=== PATIENT | male | born 1950 | race Caucasian/White ===

== ENCOUNTER 2019-08-02 11:50 | Emergency (ER) | payer OTHER ==
--- NOTE | 2019-08-02 12:11 | ED ---
Neurological HPI - HPI Summary HPI Summary: 68 year old M presenting to [facility] accompanied by his daughter with a chief complaint of an episode of trouble expressing certain words and remembering words which occurred two days ago and started at 12:30 and resolved after 15: 00. The patients daughter denies the patient having any similar episodes since two days ago. Per his daughter the patient had chest discomfort 2 weeks ago and had elbow pain several months ago for which he self-medicated. Symptoms aggravated by nothing. Symptoms alleviated by nothing. The patient was in [place] prior to today and flew to [place] on a private plane today. Medication list reviewed. Allergy list reviewed. - History of Current Complaint Chief Complaint: EDNeurologicalDeficit Stated Complaint: STROKE LIKE SYMPTOMS TWO DAYS AGO Time Seen by Provider: 08/02/19 12:04 Hx Obtained From: Patient, Family/Shaker Repairer Onset/Duration: Started days ago, Resolved Pain Intensity: 0 Pain Scale Used: 0-10 Numeric Aggravating: Nothing Alleviating: Nothing - Allergy/Home Medications Allergies/Adverse Reactions: Allergies Allergy/AdvReac Type Severity Reaction Status Date / Time No Known Allergies Allergy Verified 08/02/19 12:04 Home Medications: Home Medications Dexamethasone TAB* [Decadron TAB*] 4 mg PO Q8H #30 tab 08/02/19 [Rx] HYDROcodone/ACETAMIN 5-325 MG* [Gardiner 5-325 TAB*] 1 tab PO Q6H PRN #12 tab MDD 4 08/02/19 [Rx] PMH/Surg Hx/FS Hx/Imm Hx Endocrine/Hematology History: Denies: Hx Diabetes GI History: Reports: Hx Ulcer - Surgical History Surgical History: None Infectious Disease History: No Infectious Disease History: Denies: Traveled Outside the in Last 30 Days - Family History Known Family History: Negative: Diabetes - Social History Alcohol Use: Occasionally Substance Use Type: Reports: None Smoking Status (MU): Current Every Day Smoker Review of Systems Positive: Other - Chest discomfort Positive: Other - Elbow pain Neurological/Mental Status: Other - Difficulty speaking All Other Systems Reviewed And Are Negative: Yes Physical Exam - Summary Physical Exam Summary: VITAL SIGNS: Reviewed. GENERAL: Patient is a well-developed and nourished male who is lying comfortable in the stretcher. Patient is not in any acute respiratory distress. HEAD AND FACE: No signs of trauma. No ecchymosis, hematomas or skull depressions. No sinus tenderness. EYES: PERRL, EOMI x 2, No injected conjunctiva, no nystagmus. EARS: Hearing grossly intact. Ear canals and tympanic membranes are within normal limits. MOUTH: Oropharynx within normal limits. NECK: Supple, trachea is midline, no adenopathy, no JVD, no carotid bruit, no c- spine tenderness, neck with full ROM. CHEST: Symmetric, no tenderness at palpation. LUNGS: Clear to auscultation bilaterally. No wheezing or crackles. CVS: Regular rate and rhythm, S1 and S2 present, no murmurs or gallops appreciated. ABDOMEN: Soft, non-tender. No signs of distention. No rebound, no guarding, and no masses palpated. Bowel sounds are normal. EXTREMITIES: FROM in all major joints, no edema, no cyanosis or clubbing. NEURO: Alert and oriented x 3. No acute neurological deficits. Speech is normal and follows commands, GCS 15, NIH Stroke Scale 0. SKIN: Dry and warm. Triage Information Reviewed: Yes Vital Signs On Initial Exam: Initial Vitals Temp Pulse Resp BP Pulse Ox 98.4 F 75 16 136/78 99 08/02/19 11:50 08/02/19 11:50 08/02/19 11:50 08/02/19 11:50 08/02/19 11:50 Vital Signs Reviewed: Yes - Emelina Coma Scale Best Eye Response: 4 - Spontaneous Best Motor Response: 6 - Obeys Commands Best Verbal Response: 5 - Oriented Coma Scale Total: 15 Procedures - Sedation Patient Received Moderate/Deep Sedation with Procedure: No Diagnostics - Vital Signs Vital Signs Temp Pulse Resp BP Pulse Ox 08/02/19 11:50 98.4 F 75 16 136/78 99 - Laboratory Result Diagrams: 08/02/19 13:43 08/02/19 13:43 Lab Statement: Any lab studies that have been ordered have been reviewed, and results considered in the medical decision making process. - Radiology Chest x-ray Radiology Interpretation Completed By: Radiologist Summary of Radiographic Findings: 4 CM LEFT APICAL LUNG MASS. RECOMMEND FURTHER EVALUATION WITH CONTRAST-ENHANCED CT OF THE CHEST. ED physician has reviewed this report. - CT Brain CT CT Interpretation Completed By: Radiologist Summary of CT Findings: VASOGENIC EDEMA WITHIN THE CEREBRAL HEMISPHERES BILATERALLY. GIVEN THE PRESENCE OF LEFT APICAL MASS ON CHEST RADIOGRAPH, THIS IS MOST CONSISTENT WITH METASTATIC DISEASE TO THE BRAIN. THERE IS MINIMAL SUBFALCINE SHIFT TO THE RIGHT. ED physician has reviewed this report. Brain MRI CT Interpretation Completed By: Radiologist Summary of CT Findings: Vasogenic edema noted in the left temporal lobe and right occipital lobe with. ring enhancing lesions in these areas suspicious for metastatic disease. ED physician has reviewed this report. Chest CT CT Interpretation Completed By: Radiologist Summary of CT Findings: Left apical mass measures 5.0 cm with partial encasement of the left subclavian artery. This appears to extend into the left apex. Small mediastinal lymph nodes which are nonspecific. ED physician has reviewed this report. - EKG 12:24 Cardiac Rate: NL - 67 BPM EKG Rhythm: Sinus Rhythm Summary of EKG Findings: No ST elevations, normal axis. ED physician has reviewed and interpreted this EKG. NIH Scale - NIH Scale Level of Consciousness: Alert/Keenly Responsive Ask Patient the Month and His/Her Age: Both Correct Ask Pt to Open/Close Eyes and Supervisor Maintenance And Custodians/Release Non-Paretic Hand: Both Correctly Best Gaze (Only Horizontal Eye Movement): Normal Visual Field Testing: No Visual Loss Facial Paresis-Pt to Smile & Close Eyes or Grimace Symmetry: Normal/Symmetrical Motor Function - Right Arm: No Drift-Holds 10 Seconds Motor Function - Left Arm: No Drift-Holds 10 Seconds Motor Function - Right Leg: No Drift-Holds 10 Seconds Motor Function - Left Leg: No Drift-Holds 10 Seconds Limb Ataxia-Must be out of Proportion to Weakness Present: Absent Sensory (Use Pinprick to Test Arms/Legs/Trunk/Face): Normal Best Language (Describe Picture, Name Items): No Aphasia Dysarthria (Read Several Words): Normal Extinction and Inattention: No Abnormality Total Score: 0 Re-Evaluation - Re-Evaluation First Eval Re-Evaluation Time: 13:56 Comment: Discussed with the transfer center. Second Eval Re-Evaluation Time: 14:35 Comment: Spoke with Dr. Hollingsworth who recommends to give the patient Decadron 4 mg and discharge him. He will see the patient as an outpatient. Course/Dx - Course Assessment/Plan: 68 year old M presenting to [facility] accompanied by his daughter with a chief complaint of an episode of trouble expressing certain words and remembering words which occurred two days ago and started at 12:30 and resolved after 15:00. The patients daughter denies the patient having any similar episodes since two days ago. Per his daughter the patient had chest discomfort 2 weeks ago and had elbow pain several months ago for which he self-medicated. Symptoms aggravated by nothing. Symptoms alleviated by nothing. The patient was in [place] prior to today and flew to [place] on a private plane today. Medication list reviewed. Allergy list reviewed. Amos curtis was not called since symptoms occurred 2 days ago and lasted for 2 hours. He has had no other episodes since then. In the ED course the patient was placed on a television repairer, IV access was obtained, IV fluids started. Past medical records reviewed. Blood test w/o a significant abnormality except for an Hgb of 13.9, Hct of 41, INR of 1.12, BUN/creatinine ratio of 24.7, and AST of 11. CXR IMPRESSION: 4 CM LEFT APICAL LUNG MASS. RECOMMEND FURTHER EVALUATION WITH CONTRAST-ENHANCED CT OF THE CHEST. Head CT IMPRESSION: VASOGENIC EDEMA WITHIN THE CEREBRAL HEMISPHERES BILATERALLY. GIVEN THE PRESENCE OF LEFT APICAL MASS ON CHEST RADIOGRAPH, THIS IS MOST CONSISTENT WITH METASTATIC DISEASE TO THE BRAIN. THERE IS MINIMAL SUBFALCINE SHIFT TO THE RIGHT. I discussed the case with Dr. Hollingsworth oncologist from [facility] and recommends decadron 4 mg Q8H, for the patient to be discharged home on, he will see the patient in his office on Wednesday. The patients daughter really doesnt want to go to [facility] therefore, I discussed my physical exam and findings with Dr. Springer from oncology and she recommends for the patient to get an MRI of the brain with and without contrast and a chest CT with IV contrast. Brain MRI IMPRESSION : Vasogenic edema noted in the left temporal lobe and right occipital lobe with ring enhancing lesions in these areas suspicious for metastatic disease. Chest CT IMPRESSION: Left apical mass measures 5.0 cm with partial encasement of the left subclavian artery. This appears to extend into the left apex. Small mediastinal lymph nodes which are nonspecific. I discussed the findings and test results of the brain MRI and chest CT with Dr. Springer from oncology and she recommends for the patient to be discharged home with Decadron 4 mg every 8 hours and she will contact him to get an appointment on Wednesday. The patient continues to be hemodynamically stable and alert and oriented 3. He does not have any neurological focal deficits. Therefore I discussed the findings and test results with the patient and patients daughter and agreed with the plan. Patient was instructed to return to the emergency room immediately if any of the symptoms return or worsen. Plan of care was discussed with the patient and the patient understands and agrees. All questions were answered at patient satisfaction. Patient understands and agrees. Neurological exam before discharge : Patient is alert and oriented x 3. No acute neurological deficits. Patient's vital signs are stable. Patient is to follow up with PCP in the next 2 3 days. They understand and agree. The plan of care was discussed with the patient and the patient understands and agrees with the plan of care. All questions were answered at patient satisfaction. There were no further complaints or concerns. - Diagnoses Provider Diagnoses: Lung mass, Brain metastases, Vasogenic brain edema - Physician Notifications Discussed Care Of Patient With: Indu Springer Time Discussed With Above Provider: 14:05 Instructed by Provider To: Other - Discussed with Dr. Springer who recommends transferring the patient. [14:44] Discussed with Dr. Springer. [16:39] Discussed with Dr. Springer who agrees with the plan for discharge. - Critical Care Time Critical Care Statement: Critical care time is provided exclusive of any time spent performing procedures. Discharge ED - Sign-Out/Discharge Documenting (check all that apply): Patient Departure - Discharge Plan Condition: Stable Disposition: HOME Prescriptions: Dexamethasone TAB* [Decadron TAB*] 4 mg PO Q8H #30 tab HYDROcodone/ACETAMIN 5-325 MG* [Gardiner 5-325 TAB*] 1 tab PO Q6H PRN #12 tab MDD 4 PRN Reason: Pain - Severe Referrals: [facility] [Outside] Additional Instructions: Follow up with your primary care provider within 3 days for lung mass, vasogenic brain edema, and brain metastases noted today. Return to the ED for any worsening or new symptoms. - Billing Disposition and Condition Condition: STABLE Disposition: Home - Attestation Statements Document Initiated by Scribe: Yes Documenting Scribe: Key Peterson Provider For Whom Scribe is Documenting (Include Credential): Duane Salas MD Scribe Attestation: Key Cisneros scribed for Duane Salas MD on 08/02/19 at 2050. Scribe Documentation Reviewed: Yes Provider Attestation: The documentation as recorded by the scribeKey accurately reflects the service I personally performed and the decisions made by me, Duane Salas MD Status of Scribena Document: Viewed
[2019-08-02 14:08] LABS: ABS Basophils 0.1 10^3/ul (0-0.2); ABS Eosinophils 0.1 10^3/ul (0-0.6); ABS Lymphocytes 1.7 10^3/ul (1.0-4.8); ABS Monocytes 0.8 10^3/ul (0-0.8); ABS Neutrophils 6.2 10^3/ul (1.5-7.7); Eosinophil % 1.1 %; Hematocrit 41 % (42-52); Hemoglobin 13.9 g/dL (14.0-18.0); Lymphocyte % 19.2 %; Mean Corpuscular HGB Conc 34 g/dL (31-36); Mean Corpuscular Hemoglobin 30 pg (27-31); Mean Corpuscular Volume 88 fL (80-94); Mean Platelet Volume 7.9 fL (7.4-10.4); Platelet Count 367 10^3/uL (150-450); Red Cell Distribution Width 14 % (10-15); White Blood Count 8.8 10^3/uL (3.5-10.8)
[2019-08-02 14:20] LABS: Activated Partial Thrombo Time 34.4 seconds (26.0-38.0); INR 1.12 (0.82-1.09)
[2019-08-02 14:35] LABS: Alcohol < 10 mg/dL (<10)
[2019-08-02 14:38] LABS: ALT 10 U/L (7-52); AST 11 U/L (13-39); Albumin 4.1 g/dL (3.2-5.2); Albumin/Globulin Ratio 1.2 (1-3); Alkaline Phosphatase 93 U/L (34-104); Anion Gap 6 mmol/L (2-11); BUN/Creatinine Ratio 24.7 (8-20); Blood Urea Nitrogen 18 mg/dL (6-24); CO2 Carbon Dioxide 28 mmol/L (22-32); Calcium 9.4 mg/dL (8.6-10.3); Chloride 105 mmol/L (101-111); Cholesterol 135 mg/dL; EGFR African American 128.5 (>60); EGFR Non-African American 106.2 (>60); Globulin 3.3 g/dL (2-4); Glucose 87 mg/dL (70-100); HDL Cholesterol 49.4 mg/dL; LDL Cholesterol 60 mg/dL; Potassium 4.2 mmol/L (3.5-5.0); Sodium 139 mmol/L (135-145); Total Protein 7.4 g/dL (6.4-8.9); Triglycerides 129 mg/dL
[2019-08-02] MEDS ORDERED: Dexamethasone TAB* 4 MG PO ONE (14:38)
[2019-08-02] MEDS ORDERED: Iohexol 300* (CONTRAST) 10 ML SDV IV ONE (15:04)
[2019-08-02] MEDS ORDERED: Gadoteridol* (CONTRAST) 279.3 MG/ML 10 ML IV ONE (15:39)
[2019-08-02 17:36] VITALS: BP 133/76
== END 2019-08-02 17:36 | disposition home or self-care (01) ==
LOC: ED 11:50
DX: R91.8 Other nonspecific abnormal finding of lung field (principal); C79.31 Secondary malignant neoplasm of brain; G93.6 Cerebral edema; M25.529 Pain in unspecified elbow; F17.210 Nicotine dependence, cigarettes, uncomplicated; R94.31 Abnormal electrocardiogram [ECG] [EKG]; R07.9 Chest pain, unspecified
CPT/HCPCS: 36415; 70450; 70553; 71046; 71260; 80053; 80061; 80320; 83605; 84484; 85025; 85610; 85730; 86850; 86900; 86901; 93005; 99282; A9579; G0480; J8540; Q9967